=== PATIENT | female | born 1940 | race Caucasian/White ===

== ENCOUNTER 2016-07-24 23:29 | Day surgery (SDC) | payer OTHER ==
[~2016-07-24] VITALS: Ht 152.4 cm; Wt 90.0 kg
[~2016-07-24 23:29] MED LIST: ASPIR 8181 M1 PO; ASPIR-LOW81 MG PO; Aspirin E.C. PO; CENTRUM SILVER1 EAC3 PO; DIGESTIVE ENZYMES PO; LACTAID1 TABLET PO; LACTAID9000 UNIT PO; LISINOPRIL20 MG PO; LOPRESSOR25 MG PO; Lactaid Fast Acting PO; METOPROLOL TARTRATE PO; NORCO 5/3251 TABLET PO; NORVASC5 M1 PO; NORVASC5 MG PO; ONDANSETRON HCL4 MG PO; PRINIVIL10 MG PO; TOPROL XL6.25 MG PO; Theragran PO; Zocor PO
[2016-07-25 02:49] LABS: EOSINOPHIL (%) 2.3 % (0-5); EOSINOPHIL COUNT 0.2 K/uL (0-0.3); HEMATOCRIT 41.4 % (36.0-46.0); IMMATURE GRANULOCYTE (%) 0.2 % (0.0-0.7); INSTRUMENT ABS NEUTROPHIL CT 4.7 K/uL; LYMPHOCYTE COUNT 1.1 K/uL (1.0-2.8); MCH 28.4 PG (29.0-34.0); MCHC 32.1 G/DL (30.0-36.0); MCV 88.5 FL (83-99); MEAN PLAT.VOLUME 11.2 uM^3 (9.5-12.4); MONOCYTE (%) 6.9 % (3-12); MONOCYTE COUNT 0.5 K/uL (0-0.8); NEUTROPHIL (%) 72.8 % (45-76); NEUTROPHIL COUNT 4.7 K/uL (1.8-6.4); PLATELET COUNT 221 K/uL (156-360); RBC DIS.WIDTH-CV 14.3 % (11.8-14.6); RBC DIS.WIDTH-SD 45.5 % (39-53); RED BLOOD COUNT 4.68 M/uL (3.80-5.20); WHITE BLOOD COUNT 6.5 K/uL (4.1-10.2)
[2016-07-25 03:05] LABS: CHLORIDE 111 mEq/L (99-109); POTASSIUM 4.8 mEq/L (3.7-5.4); SODIUM 145 mEq/L (136-147)
[2016-07-25 03:07] LABS: GLUCOSE 114 mg/dL (70-99)
[2016-07-25 03:08] LABS: ANION GAP 10 MEQ/L (2-14)
[2016-07-25 03:09] LABS: TROP-I INTERPRETATION NEGATIVE; TROPONIN-I < 0.01 ng/mL (0.0-0.30)
[2016-07-25 03:10] LABS: GFR ESTIMATE (CALCULATED) > 59 mL/min/
[2016-07-25 03:11] LABS: UREA NITROGEN (BUN) 21 mg/dL (9-23)
[2016-07-25 06:42] VITALS: BP 155/65
== END 2016-07-25 | disposition home or self-care (01) ==
LOC: EME 23:29 → SDC 07-25 06:45 → EME 07-25 06:45
PROVIDERS: Emergency Medicine
DX: T18.128A Food in esophagus causing other injury, initial encounter (principal); K22.2 Esophageal obstruction; K22.4 Dyskinesia of esophagus; K44.9 Diaphragmatic hernia without obstruction or gangrene; I10 Essential (primary) hypertension; K21.9 Gastro-esophageal reflux disease without esophagitis; E03.9 Hypothyroidism, unspecified; I71.2 Thoracic aortic aneurysm, without rupture; R91.1 Solitary pulmonary nodule; I51.7 Cardiomegaly; K57.30 Diverticulosis of large intestine without perforation or abscess without bleeding; N20.0 Calculus of kidney; K80.20 Calculus of gallbladder without cholecystitis without obstruction; Z88.0 Allergy status to penicillin; Z87.891 Personal history of nicotine dependence; Z88.2 Allergy status to sulfonamides; Z91.041 Radiographic dye allergy status
CPT/HCPCS: 71020; 71250; 74150; 80048; 84484; 85025; 88305; 88342 TC; 93005; 99281; 99285; J2250; J2405; J3010; J7030

== ENCOUNTER 2016-09-26 13:20 | Inpatient (IN) | payer OTHER ==
[~2016-09-26] VITALS: Ht 149.9 cm; Wt 91.2 kg
[2016-09-26] MEDS ORDERED: ASPIR-LOW81 MG PO (14:07)
[2016-09-26] MEDS ORDERED: METOPROLOL TART25 MG PO (14:08)
[2016-09-26 14:09] LABS: HEMATOCRIT 41.3 % (36.0-46.0); MCH 28.2 PG (29.0-34.0); MCHC 32.7 G/DL (30.0-36.0); MCV 86.2 FL (83-99); MEAN PLAT.VOLUME 10.4 uM^3 (9.5-12.4); PLATELET COUNT 243 K/uL (156-360); RBC DIS.WIDTH-SD 44.5 % (39-53); RED BLOOD COUNT 4.79 M/uL (3.80-5.20)
[2016-09-26 14:23] LABS: CHLORIDE 106 mEq/L (99-109); POTASSIUM 5.2 mEq/L (3.7-5.4); SODIUM 139 mEq/L (136-147)
[2016-09-26 14:25] LABS: GLUCOSE 109 mg/dL (70-99)
[2016-09-26 14:26] LABS: ANION GAP 12 MEQ/L (2-14)
[2016-09-26 14:27] LABS: TOTAL BILIRUBIN 0.6 mg/dL (0.0-1.0)
[2016-09-26 14:29] LABS: ALKALINE PHOSPHATASE 108 IU/L (3-129); GFR ESTIMATE (CALCULATED) 51 mL/min/
[2016-09-26 14:30] LABS: UREA NITROGEN (BUN) 19 mg/dL (9-23)
[2016-09-26 14:32] LABS: LIPASE 18 U/L (1.0-51.0)
[2016-09-26 15:31] LABS: ADD MIUA? YES; BILIRUBIN NEGATIVE; BLOOD LARGE; COLOR AMBER ((YELLOW)); GLUCOSE (STRIP) 50; KETONES NEGATIVE; LEUKOCYTES MODERATE; NITRITE NEGATIVE; PROTEIN (STRIP) 100; SPECIFIC GRAVITY 1.019 (1.000-1.030); UROBILINOGEN 0.2 MG/DL (0.2-1.0)
[2016-09-26 15:49] LABS: RED BLOOD CELLS TNTC /HPF (0-5)
[2016-09-26 15:51] LABS: BACTERIA 3+ /HPF; EPITHELIAL CELLS 2+ /HPF; MUCUS 1+ /LPF
[2016-09-26 15:52] LABS: AMORPHOUS URATES CRYSTALS 1+; CASTS PRESENT /LPF; CRYSTALS PRESENT; HYALINE CASTS 0-5 /LPF; URIC ACID CRYSTALS 1+ /HPF
[2016-09-26 17:47] LABS: ABS NEUTROPHIL COUNT 10.2; ATYPICAL LYMPHOCYTE 2.6 %; EOSINOPHIL ABS CT 0.2; EOSINOPHILS 1.7 % (0-5.0); LYMPHOCYTES 13.2 % (15.0-45.0); PLAT.SUFFICIENCY ADEQUATE; SEG.NEUTROPHILS 78.1 % (46.0-76.0)
[2016-09-26] MEDS ORDERED: PROBIOTIC1 EAC1 PO (18:19)
[2016-09-26] MEDS ORDERED: ARTIFICIAL TEAR1510 BOTH EYES (18:20)
[2016-09-26] MEDS ORDERED: PAIN RELIEF TP (18:23)
[2016-09-26 21:00] VITALS: BP 158/75
[2016-09-26 23:46] VITALS: BP 162/73
[2016-09-27 04:03] VITALS: BP 166/72
[2016-09-27 06:58] LABS: HEMATOCRIT 34.7 % (36.0-46.0); MCHC 33.1 G/DL (30.0-36.0); MCV 87.4 FL (83-99); MEAN PLAT.VOLUME 10.6 uM^3 (9.5-12.4); PLATELET COUNT 191 K/uL (156-360); RBC DIS.WIDTH-SD 45.2 % (39-53); RED BLOOD COUNT 3.97 M/uL (3.80-5.20)
[2016-09-27 07:20] VITALS: BP 155/67
[2016-09-27 07:21] LABS: ALKALINE PHOSPHATASE 77 IU/L (3-129); ANION GAP 10 MEQ/L (2-14); CHLORIDE 109 MEQ/L (99-109); GFR ESTIMATE (CALCULATED) > 59 mL/min/; GLUCOSE 92 mg/dL (70-99); SAMPLE HEMOLYSIS CHECK 0; SAMPLE ICTERIC CHECK 0; SAMPLE LIPEMIA CHECK 0; SODIUM 142 MEQ/L (136-147); TOTAL BILIRUBIN 0.6 MG/DL (0.0-1.0); UREA NITROGEN (BUN) 13 mg/dL (9-23)
[2016-09-27 11:33] VITALS: BP 176/70
[2016-09-27 16:10] VITALS: BP 134/64
[2016-09-27 19:31] VITALS: BP 158/68
[2016-09-27 23:43] VITALS: BP 187/72
[2016-09-28 07:09] VITALS: BP 137/63
[2016-09-28 15:27] VITALS: BP 155/66
[2016-09-28 22:38] VITALS: BP 128/59
[2016-09-29 04:08] VITALS: BP 100/51
[2016-09-29 06:02] LABS: HEMATOCRIT 34.4 % (36.0-46.0); MCH 27.8 PG (29.0-34.0); MCHC 31.4 G/DL (30.0-36.0); MCV 88.4 FL (83-99); MEAN PLAT.VOLUME 10.1 uM^3 (9.5-12.4); PLATELET COUNT 223 K/uL (156-360); RBC DIS.WIDTH-CV 13.8 % (11.8-14.6); RBC DIS.WIDTH-SD 44.4 % (39-53); RED BLOOD COUNT 3.89 M/uL (3.80-5.20)
[2016-09-29 06:49] LABS: ANION GAP 15 MEQ/L (2-14); CHLORIDE 107 MEQ/L (99-109); GFR ESTIMATE (CALCULATED) > 59 mL/min/; POTASSIUM 4.5 MEQ/L (3.7-5.4); SAMPLE HEMOLYSIS CHECK 0; SAMPLE ICTERIC CHECK 0; SAMPLE LIPEMIA CHECK 0; SODIUM 142 MEQ/L (136-147); TOTAL BILIRUBIN 0.5 MG/DL (0.0-1.0); UREA NITROGEN (BUN) 15 mg/dL (9-23)
[2016-09-29 06:58] LABS: ALKALINE PHOSPHATASE 160 IU/L (3-129); GLUCOSE 139 mg/dL (70-99)
[2016-09-29 07:20] VITALS: BP 139/59
[2016-09-29 11:40] VITALS: BP 136/64
[2016-09-29 15:57] VITALS: BP 128/59
[2016-09-29 19:11] VITALS: BP 129/60
[2016-09-29 23:30] VITALS: BP 150/68
[2016-09-30 03:41] VITALS: BP 167/70
[2016-09-30 07:11] LABS: MCH 28.9 PG (29.0-34.0); MCHC 32.4 G/DL (30.0-36.0); MCV 89.5 FL (83-99); PLATELET COUNT 212 K/uL (156-360); RBC DIS.WIDTH-SD 45.7 % (39-53); WHITE BLOOD COUNT 10.9 K/uL (4.1-10.2)
[2016-09-30 07:27] LABS: ALKALINE PHOSPHATASE 130 IU/L (3-129); ANION GAP 9 MEQ/L (2-14); CHLORIDE 107 MEQ/L (99-109); GFR ESTIMATE (CALCULATED) > 59 mL/min/; POTASSIUM 3.7 MEQ/L (3.7-5.4); SAMPLE HEMOLYSIS CHECK 0; SAMPLE ICTERIC CHECK 0; SAMPLE LIPEMIA CHECK 0; SODIUM 143 MEQ/L (136-147); TOTAL BILIRUBIN 0.5 MG/DL (0.0-1.0); UREA NITROGEN (BUN) 17 mg/dL (9-23)
[2016-09-30 07:39] VITALS: BP 139/63
[2016-09-30 07:51] LABS: GLUCOSE 91 mg/dL (70-99)
[2016-09-30 15:29] VITALS: BP 149/64
[2016-09-30] MEDS ORDERED: HYDROCODON-ACE1 EAC7 PO (16:30)
[2016-09-30] MEDS ORDERED: COLACE100 MG PO (16:30)
== END 2016-09-30 18:20 | disposition home or self-care (01) | DRG 418 ==
LOC: EME 13:20 → 2EAST 19:23 → EDOF 19:23 → ENRESERV 19:24 → 2EAST 20:43
PROVIDERS: Physician Assistant; Thoracic Surgery (Cardiothoracic Vascular Surgery)
PROC: 0FT44ZZ Resection of Gallbladder, Percutaneous Endoscopic Approach (ICD-10-PCS; principal; 2016-09-26)
DX: K80.12 Calculus of gallbladder with acute and chronic cholecystitis without obstruction (principal); Z68.41 Body mass index [BMI] 40.0-44.9, adult; I10 Essential (primary) hypertension; E78.5 Hyperlipidemia, unspecified; K21.9 Gastro-esophageal reflux disease without esophagitis; I25.10 Atherosclerotic heart disease of native coronary artery without angina pectoris; Z87.891 Personal history of nicotine dependence; E11.9 Type 2 diabetes mellitus without complications; E66.9 Obesity, unspecified
CPT/HCPCS: 71020; 74176; 76705; 80053; 81003; 83690; 85007; 85027; 87070; 87075; 87205; 88304; 94640; 94799; 97530 GO; 99202; 99281; 99285; J1170; J1644; J3010; J7030; J7120; S0020

== ENCOUNTER 2017-02-15 20:02 | Emergency (ER) | payer OTHER ==
[~2017-02-15] VITALS: Ht 152.4 cm; Wt 88.6 kg
[~2017-02-15 20:02] MED LIST changes: +ARTIFICIAL TEAR1510 BOTH EYES; +COLACE100 MG PO; +HYDROCODON-ACE1 EAC7 PO; +METOPROLOL TART25 MG PO; +PAIN RELIEF TP; +PROBIOTIC1 EAC1 PO
[2017-02-15 20:27] LABS: HEMATOCRIT 40.7 % (36.0-46.0); HEMOGLOBIN 13.5 G/DL (11.9-15.5); MCH 28.7 PG (29.0-34.0); MCHC 33.2 G/DL (30.0-36.0); MCV 86.6 FL (83-99); PLATELET COUNT 212 K/uL (156-360); RBC DIS.WIDTH-CV 13.7 % (11.8-14.6); RBC DIS.WIDTH-SD 43.4 % (39-53); WHITE BLOOD COUNT 10.1 K/uL (4.1-10.2)
[2017-02-15 20:40] LABS: ALBUMIN 3.7 g/dL (3.2-4.8); CHLORIDE 107 mEq/L (99-109); POTASSIUM 4.1 mEq/L (3.7-5.4); SODIUM 138 mEq/L (136-147)
[2017-02-15 20:42] LABS: GLUCOSE 104 mg/dL (70-99)
[2017-02-15 20:44] LABS: TOTAL BILIRUBIN 0.4 mg/dL (0.0-1.0)
[2017-02-15 20:46] LABS: ALKALINE PHOSPHATASE 120 IU/L (3-129); CREATININE 1.4 mg/dL (0.6-1.3); GFR ESTIMATE (CALCULATED) 39 mL/min/
[2017-02-15 20:47] LABS: UREA NITROGEN (BUN) 27 mg/dL (9-23)
[2017-02-15 20:48] LABS: AST (GOT) 62 IU/L (2-34)
[2017-02-15 20:49] LABS: ALT (GPT) 55 IU/L (3-49); LIPASE 22 U/L (1.0-51.0)
[2017-02-15 21:47] LABS: APPEARANCE CLEAR ((CLEAR)); BILIRUBIN NEGATIVE; BLOOD MODERATE; COLOR YELLOW ((YELLOW)); GLUCOSE (STRIP) NEGATIVE; KETONES 20; LEUKOCYTES MODERATE; NITRITE NEGATIVE; PROTEIN (STRIP) 30; SPECIFIC GRAVITY 1.013 (1.000-1.030); UROBILINOGEN 0.2 MG/DL (0.2-1.0)
[2017-02-15 21:57] LABS: BACTERIA RARE /HPF; EPITHELIAL CELLS 1+ /HPF; MUCUS TRACE /LPF; RED BLOOD CELLS 0-5 /HPF (0-5); UCUL ADDED? YES
[2017-02-15] MEDS ORDERED: PANCREATIC ENZYME PO (23:05)
[2017-02-16] MEDS ORDERED: ZOFRAN ODT4 MG PO (00:53)
[2017-02-16] MEDS ORDERED: ULTRAM50 MG PO (00:53)
[2017-02-16] MEDS ORDERED: FLOMAX0.4 MG PO (00:53)
[2017-02-16] MEDS ORDERED: MOTRIN800 MG PO (00:55)
[2017-02-16 02:20] VITALS: BP 159/57
== END 2017-02-16 02:23 | disposition home or self-care (01) ==
LOC: EME 20:02
DX: N13.2 Hydronephrosis with renal and ureteral calculous obstruction (principal); I10 Essential (primary) hypertension; I71.2 Thoracic aortic aneurysm, without rupture; Z87.442 Personal history of urinary calculi; K21.9 Gastro-esophageal reflux disease without esophagitis; Z88.0 Allergy status to penicillin; Z88.2 Allergy status to sulfonamides; Z87.891 Personal history of nicotine dependence
CPT/HCPCS: 74176; 80053; 81003; 83690; 85027; 87086; 99281; 99285; J7030